=== PATIENT | female | born 2000 ===

== ENCOUNTER 2018-10-23 13:33 | Outpatient (CLI) | payer OTHER | END 2018-10-23 13:34 | disposition home or self-care (01) | LOC: C.PAT 13:33 | DX: L72.3 Sebaceous cyst (principal) ==

== ENCOUNTER 2018-10-29 10:34 | Day surgery (SDC) | payer BC, OTHER | END 2018-10-29 11:42 | disposition home or self-care (01) | LOC: C.SDS 10:34 | DX: L72.3 Sebaceous cyst (principal) ==

== ENCOUNTER 2018-11-12 07:34 | Day surgery (SDC) | payer BC ==
[2018-10-23 13:47] VITALS: BMI 17.8
[2018-11-12] MEDS ORDERED: ceFAZolin 1 gm in NS 1 GM/100 ML BAG IVPB ONE (09:27)
[2018-11-12] MEDS ORDERED: Bupivacaine 0.25% 20 ML INJ IJ ONE (09:28)
[2018-11-12] MEDS ORDERED: Lidocaine/Epinephrine 1% 1:100000 10 ML IJ ONE (09:28)
[2018-11-12] MEDS ORDERED: Midazolam 2 MG/2 ML VIAL ONE (10:14)
[2018-11-12] MEDS ORDERED: Propofol 10 mg/ml Inj (20 ML) ONE (10:17)
--- NOTE | 2018-11-12 11:21 | PCM.SURG1 ---
Surgeon's Initial Post Op Note - Surgeon's Notes Surgeon: Dr. Jessica Project Superintendent: Dr. Hummel, PGY 1 Type of Anesthesia: IV Sedation Anesthesia Administered By: Dr. Sahni Pre-Operative Diagnosis: multiple sebaceous cystes of scalp Operative Findings: multiple sebaceous cysts of scalp Post-Operative Diagnosis: multiple sebaceous cysts of scalp Operation Performed: excision of multiple sebaceous cysts of scalp Specimen/Specimens Removed: left temporal sebaceous cyst of scalp Estimated Blood Loss: EBL {In ML}: 10 Blood Products Given: N/A Drains Used: No Drains Post-Op Condition: Good Date of Surgery/Procedure: 11/12/18 Time of Surgery/Procedure: 10:05
[2018-11-12] MEDS ORDERED: HYDROmorphone 0.5 mg/0.5 ml ISec IVP PRN (11:25)
[2018-11-12 11:35] VITALS: TEMP 97.9
[2018-11-12 13:02] VITALS: RESP 18; O2SAT 100
[2018-11-12 13:04] VITALS: BP 106/72; PULSE 83
--- NOTE | 2018-11-12 22:58 | OP ---
PROCEDURE DATE: 11/12/2018 PREOPERATIVE DIAGNOSIS: Sebaceous cyst of the scalp, multiple. POSTOPERATIVE DIAGNOSIS: Sebaceous cyst of the left temporal and occipital area. PROCEDURES DONE: 1. Excision of the sebaceous cyst of the left temporal area, 1 x 1 cm in size. 2. Excision of the sebaceous cyst of the occipital area, 1 x 1 cm in size. SURGEON: Kavin Jessica MD ACCOUNT LEADER: Stephanie, PGY-1, resident. ANESTHESIA: Local anesthesia plus sedation. ESTIMATED BLOOD LOSS: Around 20 mL. DRAIN: None. PATHOLOGY: Sebaceous cysts of the left temporal and occipital area were sent for the pathology. COMPLICATIONS: None. INTRAOPERATIVE FINDINGS: The patient had an approximately 1 x 1 cm sebaceous cyst of the left temporal and occipital area. DESCRIPTION OF PROCEDURE: On intraoperative steps, this is a 18-year-old female who was diagnosed with sebaceous cyst of the scalp. The patient was consented for the excision, brought to the OR, placed supine on the operating table. After induction of the sedation, the scalp area was prepped and draped in the usual sterile fashion. Local anesthesia was injected. Transverse incision was made, and the upper and lower flap was created. The underlying sebaceous cyst was completely excised and it was sent off the table for pathology. A similar incision was made on the occipital area, and upper and lower flap was created. The sebaceous cyst was completely excised and it was sent off the table for the pathology. Proper hemostasis was achieved. The wound was irrigated and the wound was closed in two layers, subcu with 3-0 Vicryl and skin with 4-0 nylon interrupted suture, and dry sterile dressing was applied. The patient tolerated the procedure well. Count of instrument and gauze was correct. There was no apparent complication. Kavin Jessica MD
== END 2018-11-12 13:10 | disposition home or self-care (01) ==
LOC: C.SDS 07:34
PROVIDERS: ATTEND Surgery Surgical Critical Care
DX: L72.3 Sebaceous cyst (principal)
CPT/HCPCS: 11424; 12032; 88305; J0690; J2250; J2704; J3010